=== PATIENT | male | born 1990 | race Caucasian/White ===

== ENCOUNTER 2016-11-07 17:23 | Emergency (ER) | payer SELFPAY ==
[2016-11-07 17:27] VITALS: BP 128/77; PULSE 90; RESP 18; TEMP 97.8; O2SAT 99
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
== END 2016-11-07 19:19 | disposition home or self-care (01) ==
LOC: H.ER 17:23
DX: F43.20 Adjustment disorder, unspecified (principal)